=== PATIENT | female | born 1965 | race Two or more races ===

== ENCOUNTER 2016-12-20 20:38 | Emergency (ER) | payer SELFPAY ==
[~2016-12-20] VITALS: Ht 149.9 cm; Wt 59.1 kg
[2016-12-21] MEDS ORDERED: KETOROLAC 30MG/ML VIAL IM ONE (05:45)
[2016-12-21] MEDS ORDERED: TRAMADOL 50MG TABLET PO ONE (08:00)
[2016-12-21 08:45] VITALS: BP 129/74
== END 2016-12-21 09:03 | disposition home or self-care (01) ==
LOC: ER 20:51
DX: M54.5 Low back pain (principal)
CPT/HCPCS: 72100; 73610; 96372; 99284; J1885; Z7610

== ENCOUNTER 2017-07-15 02:13 | Emergency (ER) | payer MEDICAID, OTHER ==
[~2017-07-15] VITALS: Ht 165.1 cm; Wt 59.0 kg
[2017-07-15] MEDS ORDERED: LORAZEPAM 0.5MG TABLET PO ONE (04:30)
[2017-07-15] MEDS ORDERED: ASPIRIN 81MG TABLET PO ONE ×2 (04:30→06:45)
[2017-07-15 04:40] LABS: BASOPHILS % 0.6 % (0.0-2.0); EOSINOPHILS % 0.7 % (0.0-5.0); HEMATOCRIT. 40.6 % (36.0-48.0); HEMOGLOBIN. 13.5 g/dL (12.0-16.0); LYMPHOCYTES % 41.2 % (20.0-50.0); MEAN CORPUSCULAR HEMOGLOBIN 30.3 pg (28.0-32.0); MEAN CORPUSCULAR VOLUME 90.7 fL (81.0-99.0); MEAN PLATELET VOLUME 7.8 fl (7.4-10.4); MONOCYTES % 5.8 % (2.0-8.0); NEUTROPHILS % 51.7 % (40.0-76.0); PLATELET 319 x1000/uL (130-400); RED BLOOD CELL COUNT 4.47 mill/uL (4.2-5.4); RED CELL DISTRIBUTION WIDTH 12.7 % (11.6-14.6)
[2017-07-15 04:54] LABS: CHLORIDE 103 mEq/L (98-107); D-DIMER < 0.19 mg/L FEU (<0.50); INR 1.1; PROTHROMBIN TIME 11.1 sec (9.4-11.6); TROPONIN I < 0.02 ng/mL (0.00-0.04)
[2017-07-15 09:30] VITALS: BP 114/65
== END 2017-07-15 11:00 | disposition home or self-care (01) ==
LOC: ER 02:13
DX: R07.9 Chest pain, unspecified (principal); R00.2 Palpitations; R51 Headache; F17.210 Nicotine dependence, cigarettes, uncomplicated
CPT/HCPCS: 36415; 71045; 80053; 83880; 84443; 84484; 85025; 85379; 85610; 93005; 99285; Z7610